=== PATIENT | male | born 1970 | race Caucasian/White ===

== ENCOUNTER 2016-10-07 12:04 | Day surgery (SDC) | payer OTHER ==
[2016-09-20 12:12] VITALS: BMI 30.4
[2016-10-07] MEDS ORDERED: LEVOFLOXACIN 500 MG IVPB 100 ML IVPB ONE (13:33)
[2016-10-07] MEDS ORDERED: LEVOFLOXACIN 500 MG PREMIX BAG IVPB ONE (14:35)
[2016-10-07] MEDS ORDERED: PROPOFOL 20 ML ONE (14:43)
[2016-10-07] MEDS ORDERED: LIDOCAINE HCL/PF 2% SDV 5ML VIAL ONE (14:44)
[2016-10-07] MEDS ORDERED: KETOROLAC TROMETHAMINE 30 MG/1 ML VIAL ONE (15:03)
[2016-10-07] MEDS ORDERED: ACETAMINOPHEN 1000 MG/100 ML VIAL (NON FORMULARY) IVPB ONE (15:16)
[2016-10-07] MEDS ORDERED: oxyCODONE HCL 5 MG TABLET PO PRN (15:16)
[2016-10-07] MEDS ORDERED: ONDANSETRON 4 MG/2 ML VIAL IVPUSH PRN (15:16)
[2016-10-07] MEDS ORDERED: LACTATED RINGERS SOLUTION 1,000 ML IV SCH (15:30)
[2016-10-07 15:38] VITALS: TEMP 97.9
--- NOTE | 2016-10-07 15:42 | OP ---
Operative Note - Note: Operative Date: 10/07/16 Pre-Operative Diagnosis: left renal stone Operation: left eswl Findings: 8mm left mid-pole stone Post-Operative Diagnosis: Same as Pre-op Surgeon: Carlos Ramirez Anesthesia: General Operative Report Dictated: Yes
[2016-10-07] MEDS ORDERED: oxyCODONE HCL 5 MG TABLET ONE (16:00)
[2016-10-07 17:36] VITALS: BP 140/84; PULSE 68
--- NOTE | 2016-10-08 06:32 | OP ---
DATE OF OPERATION: 10/07/2016 PREOPERATIVE DIAGNOSIS: Left renal stone. POSTOPERATIVE DIAGNOSIS: Left renal stone. PROCEDURE: Left extracorporeal shock wave lithotripsy. ATTENDING: Lorena Clifford MD ANESTHESIA: General. OPERATION: The patient was brought in the operating room, placed in supine position on the operating room table. Ultrasonography and fluoroscopy were performed. An 8-mm left mid pole stone was identified. General anesthesia was then administered. Levaquin 500 mg was given intravenously for surgical prophylaxis. At this point, the extracorporeal shock wave lithotripsy was performed, 2500 impulses at 17 joules of power was administered to the stone with excellent fragmentation on real time ultrasonography and fluoroscopy. No complications were noted. The disposition of the patient was to the recovery room. LORENA CLIFFORD M.D. [id number]
== END 2016-10-07 17:40 | disposition home or self-care (01) ==
LOC: JASU-SURG 12:04
PROVIDERS: ATTEND Urology
PROC: 0TF4XZZ Fragmentation in Left Kidney Pelvis, External Approach (ICD-10-PCS; principal; 2016-10-07 13:30)
DX: N20.0 Calculus of kidney (principal)
CPT/HCPCS: 94760

== ENCOUNTER 2017-07-15 10:19 | Emergency (ER) | payer OTHER ==
[2017-07-15 10:23] VITALS: TEMP 98.1; BMI 29.6
[2017-07-15] MEDS ORDERED: KETOROLAC TROMETHAMINE 30 MG/1 ML VIAL IVPUSH ONE (12:37)
[2017-07-15] MEDS ORDERED: FAMOTIDINE IV 20 MG/12 ML VIAL IVPB ONE (12:37)
[2017-07-15] MEDS ORDERED: SODIUM CHLORIDE 1,000 ML IV STA (12:37)
--- NOTE | 2017-07-15 12:37 | PDOC ---
History of Present Illness - General History Source: Patient Exam Limitations: No Limitations - History of Present Illness Initial Comments: 07/15/17 12:40 The patient is a 46 year old male with significant PMH of hyperlipidemia who presents to the emergency department with worsening right flank pain radiating to the right upper quadrant for the past 2 days. The patient describes the right flank pain as shooting and intermittent pain for the past two months but worsened two days ago. The patient states the right flank pain is not improved or worsened by food and water. The patient notes he is experiencing some diaphoresis secondary to his right flank pain. The patient states he has not taken any meds to alleviate the pain. The patient has a history of recent bilateral kidney stones which resolved with lithotripsy. The patient denies fever, chills, nausea, vomit, diarrhea and constipation. Denies dysuria, frequency, urgency and hematuria. The patient denies chest pain, headache and dizziness. Allergies: NKA Past surgical history: None reported Social history: Current smoker (1PPD). No reported alcohol or drug use. PCP: Dr. Garcia <Carmenza Blanco - Last Filed: 07/15/17 12:40> <Karen Zepeda - Last Filed: 07/15/17 15:53> - General Chief Complaint: Pain Stated Complaint: RT SIDE PAIN Time Seen by Provider: 07/15/17 10:36 Past History <Carmenza Blanco - Last Filed: 07/15/17 12:40> - Past Medical History COPD: No Disorders: Yes (KIDNEY STONES) Hypercholesterolemia: Yes (border line) - Suicide/Smoking/Psychosocial Hx Smoking History: Current some day smoker Have you smoked in the past 12 months: Yes Number of Cigarettes Smoked Daily: 20 Information on smoking cessation initiated: Yes 'Breaking Loose' booklet given: 07/15/17 Hx Alcohol Use: No Drug/Substance Use Hx: No Substance Use Type: None <Karen Zepeda - Last Filed: 07/15/17 15:53> - Past Medical History Allergies/Adverse Reactions: Allergies Allergy/AdvReac Type Severity Reaction Status Date / Time No Known Allergies Allergy Verified 07/15/17 10:19 Home Medications: Ambulatory Orders Aspirin [ASA -] 81 mg PO DAILY 09/20/16 Atorvastatin Ca [Lipitor] 20 mg PO DAILY 09/20/16 Cholecalciferol (Vitamin D3) [Vitamin D3] 50,000 unit PO WEEKLY 09/20/16 Review of Systems - Review of Systems Able to Perform ROS?: Yes Comments:: 07/15/17 12:42 GENERAL/CONSTITUTIONAL: No fever or chills. No weakness. HEAD, EYES, EARS, NOSE AND THROAT: No change in vision. No ear pain or discharge. No sore throat. CARDIOVASCULAR: No chest pain or shortness of breath. RESPIRATORY: No cough, wheezing, or hemoptysis. GASTROINTESTINAL: (+) Right flank pain. No nausea, vomiting, diarrhea or constipation. GENITOURINARY: No dysuria, frequency, or change in urination. MUSCULOSKELETAL: No joint or muscle swelling or pain. No neck or back pain. SKIN: No rash NEUROLOGIC: No headache, vertigo, loss of consciousness, or change in strength/ sensation. ENDOCRINE: No increased thirst. No abnormal weight change. HEMATOLOGIC/LYMPHATIC: No anemia, easy bleeding, or history of blood clots. ALLERGIC/IMMUNOLOGIC: No hives or skin allergy. <Carmenza Blanco - Last Filed: 07/15/17 12:40> *Physical Exam - Vital Signs Last Vital Signs Temp Pulse Resp BP Pulse Ox 98.1 F 99 H 18 145/107 100 07/15/17 10:20 07/15/17 10:20 07/15/17 10:20 07/15/17 10:20 07/15/17 10:20 - Physical Exam Comments: 07/15/17 12:43 GENERAL: Awake, alert, and fully oriented, in no acute distress HEAD: No signs of trauma EYES: PERRLA, EOMI, sclera anicteric, conjunctiva clear ENT: Auricles normal inspection, hearing grossly normal, nares patent, oropharynx clear without exudates. Moist mucosa NECK: Normal ROM, supple, no lymphadenopathy, JVD, or masses LUNGS: Breath sounds equal, clear to auscultation bilaterally. No wheezes, and no crackles HEART: Regular rate and rhythm, normal S1 and S2, no murmurs, rubs or gallops ABDOMEN: (+) CVA tenderness. Soft, normoactive bowel sounds. No guarding, no rebound. No masses EXTREMITIES: Normal range of motion, no edema. No clubbing or cyanosis. No cords, erythema, or tenderness NEUROLOGICAL: Cranial nerves II through XII grossly intact. Normal speech, normal gait SKIN: Warm, Dry, normal turgor, no rashes or lesions noted. <Carmenza Blanco - Last Filed: 07/15/17 12:40> - Vital Signs Last Vital Signs Temp Pulse Resp BP Pulse Ox 98.1 F 99 H 18 145/107 100 07/15/17 10:20 07/15/17 10:20 07/15/17 10:20 07/15/17 10:20 07/15/17 10:20 <Karen Zepeda - Last Filed: 07/15/17 15:53> ED Treatment Course - LABORATORY CBC & Chemistry Diagram: 07/15/17 12:15 07/15/17 12:15 <Karen Zepeda - Last Filed: 07/15/17 15:53> *DC/Admit/Observation/Transfer - Attestations Scribe Attestion: 07/15/17 12:43 Documentation prepared by Carmenza Blanco, acting as medical staff manager for Karen Zepeda MD. <Carmenza Blanco - Last Filed: 07/15/17 12:40> - Discharge Dispostion Admit: No <Karen Zepeda - Last Filed: 07/15/17 15:53> Diagnosis at time of Disposition: Flank pain - Discharge Dispostion Disposition: HOME Condition at time of disposition: Stable - Referrals Referrals: Mera Garcia MD [Primary Care Provider] - - Patient Instructions - Post Discharge Activity
[2017-07-15] MEDS ORDERED: KETOROLAC TROMETHAMINE 30 MG/1 ML VIAL ONE (12:49)
[2017-07-15] MEDS ORDERED: FAMOTIDINE 20 MG/50 ML IVPB 20 MG/50 ML MG IVPB ONE (12:50)
[2017-07-15 13:04] LABS: MCH 30.3 pg (25.7-33.7); MCHC 33.3 g/dl (32.0-35.9); MEAN PLT VOLUME 7.7 fl (7.5-11.1); PLATELET COUNT 230 K/MM3 (134-434); RDW 13.5 % (11.9-15.9); WHITE BLOOD COUNT 4.6 K/mm3 (4.0-10.0)
[2017-07-15 13:19] LABS: NEUTROPHILS 56.6 % (42.8-82.8)
[2017-07-15 13:20] LABS: BASOPHIL 0.3 % (0-2.0)
[2017-07-15 13:34] LABS: ALBUMIN 4.1 g/dl (3.4-5.0); ALK PHOS 46 U/L (45-117); ANION GAP 8 (8-16); BILIRUBIN,TOTAL 0.5 mg/dL (0.2-1.0); CALCIUM 9.4 mg/dL (8.5-10.1); CO2 27 mmol/L (21-32); CREATININE 1.3 mg/dL (0.7-1.3); GLUCOSE,RANDOM 90 mg/dL (74-106); SGOT/AST 19 U/L (15-37); SGPT/ALT 53 U/L (12-78); TOT PROT 7.3 g/dl (6.4-8.2)
[2017-07-15 16:29] LABS: URINE APPEARANCE SLCLOUDY; URINE BLOOD NEGATIVE (NEGATIVE); URINE COLOR AMBER; URINE GLUCOSE (UA) NEGATIVE (NEGATIVE); URINE KETONE TRACE (NEGATIVE); URINE NITRITE NEGATIVE (NEGATIVE); URINE PROTEIN NEGATIVE (NEGATIVE)
[2017-07-15 17:39] VITALS: BP 148/89; PULSE 72
[2017-07-15 18:40] LABS: URINE LEUK ESTERASE Negative (NEGATIVE)
== END 2017-07-15 17:15 | disposition home or self-care (01) ==
LOC: JER 10:19
PROC: 3E033GC Introduction of Other Therapeutic Substance into Peripheral Vein, Percutaneous Approach (ICD-10-PCS; principal; 2017-07-15)
PROC: 3E0337Z Introduction of Electrolytic and Water Balance Substance into Peripheral Vein, Percutaneous Approach (ICD-10-PCS; 2017-07-15)
DX: R10.31 Right lower quadrant pain (principal); E78.5 Hyperlipidemia, unspecified; F17.210 Nicotine dependence, cigarettes, uncomplicated
CPT/HCPCS: 36415; 74176; 76705-TC; 80053; 81003; 83690; 85025; 96361; 96365; 96375; 99281-25

== ENCOUNTER 2019-08-31 07:40 | Emergency (ER) | payer OTHER ==
[2019-08-31 07:52] VITALS: BP 128/91; PULSE 92; TEMP 98; BMI 33.4
[2019-08-31] MEDS ORDERED: KETOROLAC TROMETHAMINE 30 MG/1 ML VIAL IM ONE (08:32)
[2019-08-31] MEDS ORDERED: KETOROLAC TROMETHAMINE 30 MG/1 ML VIAL ONE (08:35)
--- NOTE | 2019-08-31 09:10 | PDOC ---
History of Present Illness - General Chief Complaint: Back Pain Stated Complaint: LOWER BACK PAIN Time Seen by Provider: 08/31/19 08:14 History Source: Patient Exam Limitations: No Limitations - History of Present Illness Initial Comments: 08/31/19 09:04 49-year-old male with history of hypertension, hyperlipidemia, SLE, sleep apnea , asthma, anxiety presents complaining of atraumatic low back pain radiating to left lower extremity x2 days with occasional back spasms. Reports pain has slightly improved without intervention. Denies fever, chills, weakness, urinary or bowel incontinence. ROS: GENERAL/CONSTITUTIONAL: No fever, chills, weakness, dizziness HEAD, EYES, EARS, NOSE AND THROAT: No changes in vision, No ear pain or discharge, No sore throat CARDIOVASCULAR: No chest pain RESPIRATORY: No shortness of breath or cough GASTROINTESTINAL: No pain, nausea, vomiting, diarrhea or constipation GENITOURINARY: No dysuria MUSCULOSKELETAL: + back pain SKIN: No rash NEUROLOGIC: No headache, vertigo, loss of consciousness, or loss of sensation PE: GENERAL: well-appearing, NAD HEAD: NCAT EYES: Pupils equal, round and reactive to light, sclera anicteric, conjunctiva clear ENT: pharynx: no erythema, no exudate, uvula midline NECK: supple CHEST: nontender RESP: clear, no w/r/r CARDIO: rrr, no m/g/r ABD: +BS, soft, nontender, non distended BACK: L4-L5 minimal paraspinal tenderness to palpation, no midline spinal ttp, no CVAT EXTREMITIES: Normal range of motion, no edema NEUROLOGICAL: Ambulating with cane and slight limp SKIN: Warm, Dry 08/31/19 09:10 Past History - Past Medical History Allergies/Adverse Reactions: Allergies Allergy/AdvReac Type Severity Reaction Status Date / Time No Known Allergies Allergy Verified 07/15/17 10:19 Home Medications: Ambulatory Orders Aspirin [ASA -] 81 mg PO DAILY 09/20/16 Atorvastatin Ca [Lipitor] 20 mg PO DAILY 09/20/16 Cholecalciferol (Vitamin D3) [Vitamin D3] 50,000 unit PO WEEKLY 09/20/16 Albuterol Sulfate Inhaler - [Ventolin Hfa Inhaler -] 2 inh PO Q6H PRN 08/31/19 Amlodipine Besylate [Norvasc -] 10 mg PO DAILY 08/31/19 Famotidine [Pepcid] 40 mg PO DAILY 08/31/19 Fenofibrate 16 mg PO HS 08/31/19 Ibuprofen 600 mg PO Q6H #20 tablet 08/31/19 Tiotropium [place] [Spiriva] 1 inh IH PRN PRN 08/31/19 predniSONE [Deltasone -] 10 mg PO ASDIR 08/31/19 traZODone HCL [Trazodone HCl] 50 mg PO HS 08/31/19 COPD: No Disorders: Yes (KIDNEY STONES) Hypercholesterolemia: Yes (border line) - Immunization History Immunization Up to Date: No - Psycho Social/Smoking Cessation Hx Smoking History: Current every day smoker Have you smoked in the past 12 months: Yes Number of Cigarettes Smoked Daily: 20 Information on smoking cessation initiated: No 'Breaking Loose' booklet given: 07/15/17 Hx Alcohol Use: No Drug/Substance Use Hx: No Substance Use Type: None *Physical Exam - Vital Signs Last Vital Signs Temp Pulse Resp BP Pulse Ox 98.0 F 92 H 18 128/91 96 08/31/19 07:46 08/31/19 07:46 08/31/19 07:46 08/31/19 07:46 08/31/19 07:46 ED Treatment Course - Medications Given in the ED: ED Medications Discontinued Medications Generic Name Dose Route Start Last Admin Trade Name Freq PRN Reason Stop Dose Admin Ketorolac Tromethamine 30 mg 08/31/19 08:32 08/31/19 08:39 Toradol Injection - IM 08/31/19 08:33 30 mg ONCE ONE Administration Medical Decision Making - Medical Decision Making 08/31/19 09:08 49-year-old male presents complaining of atraumatic low back pain radiating to left lower extremity x 2 days with muscle spasms. States pain has slightly improved without intervention. Pain improved after IM Toradol Patient is ambulatory Understands he needs to follow-up with PMD Return precautions given Discharge - Discharge Information Problems reviewed: Yes Clinical Impression/Diagnosis: Back pain Qualifiers: Back pain location: low back pain Chronicity: acute Sciatica presence: with sciatica Sciatica laterality: sciatica of left side Condition: Stable Disposition: HOME - Admission No - Additional Discharge Information Prescriptions: Ibuprofen 600 mg PO Q6H #20 tablet - Follow up/Referral Referrals: Mera Garcia MD [Primary Care Provider] - - Patient Discharge Instructions Additional Instructions: Take ibuprofen 600 mg every 4-6 hours as needed for pain Follow-up with your primary care doctor within 1 to 2 weeks Return to ED if fever, chills, urinary or bowel incontinence, weakness or any worsening symptoms - Post Discharge Activity
== END 2019-08-31 09:21 | disposition home or self-care (01) ==
LOC: JER 07:40
PROC: 3E0233Z Introduction of Anti-inflammatory into Muscle, Percutaneous Approach (ICD-10-PCS; principal; 2019-08-31)
DX: M54.42 Lumbago with sciatica, left side (principal); I10 Essential (primary) hypertension; E78.5 Hyperlipidemia, unspecified; M32.9 Systemic lupus erythematosus, unspecified; G47.39 Other sleep apnea; J45.909 Unspecified asthma, uncomplicated; F41.9 Anxiety disorder, unspecified
CPT/HCPCS: 96372; 99281-25

== ENCOUNTER 2020-03-06 16:12 | Day surgery (SDC) | payer OTHER ==
[2020-03-03 16:46] VITALS: BMI 30.4
[2020-03-06] MEDS ORDERED: ACETAMINOPHEN 325 MG TABLET (FP) PO PRN (16:37)
[2020-03-06] MEDS ORDERED: oxyCODONE HCL 5 MG TABLET PO PRN (17:18)
[2020-03-06] MEDS ORDERED: PROMETHAZINE HCL 25 MG/1 ML VIAL IVPUSH PRN (17:18)
[2020-03-06] MEDS ORDERED: PROPOFOL 20 ML ONE (18:16)
[2020-03-06] MEDS ORDERED: MIDAZOLAM HCL 2 MG/2 ML SINGLE DOSE VIAL ONE (18:16)
--- NOTE | 2020-03-06 18:25 | OP ---
Operative Note - Note: Operative Date: 03/06/20 Pre-Operative Diagnosis: Right renal stone Operation: Righr ESWL Findings: 6 mm mid pole Right renal stone Post-Operative Diagnosis: Same as Pre-op Surgeon: Carlos Ramirze Anesthesia: Regional Estimated Blood Loss (mls): 0 Operative Report Dictated: Yes
[2020-03-06] MEDS ORDERED: LIDOCAINE HCL/PF 2% SDV 5ML VIAL ONE (18:26)
[2020-03-06] MEDS ORDERED: KETOROLAC TROMETHAMINE 30 MG/1 ML VIAL ONE (18:28)
[2020-03-06] MEDS: LACTATED RINGERS SOLUTION 1,000 ML IV SCH (21:00)
[2020-03-07] MEDS: LACTATED RINGERS SOLUTION 1,000 ML IV SCH (05:33)
[2020-03-07 05:52] VITALS: BP 122/96; PULSE 71; TEMP 98.4
--- NOTE | 2020-03-07 19:02 | OP ---
DATE OF OPERATION: 03/06/2020 PREOPERATIVE DIAGNOSIS: Right renal stone. POSTOPERATIVE DIAGNOSIS: Right renal stone. PROCEDURE: Right extracorporeal shockwave lithotripsy. ATTENDING: Lorena Ramirez M.D. ANESTHESIA: Fractional. DESCRIPTION OF PROCEDURE: Patient was brought in the operating room, placed in a supine position on the operating room table. Ultrasonography and fluoroscopy were performed. A 6-mm right mid pole stone was identified. At that point, anesthesia and preoperative antibiotics were administered. Extracorporeal shockwave lithotripsy was then started. 2500 impulses at 17 joules of power were administered to the stone with excellent fragmentation of the stone noted under real-time ultrasonography and fluoroscopy. No complications were noted. DISPOSITION: To recovery room. LORENA CLIFFORD M.D. [id number]
== END 2020-03-07 07:27 | disposition home or self-care (01) ==
LOC: JASUSAT 16:12 → JASU-SURG 16:12 → J6S 20:10 → JASUSAT 03-07 07:27
PROVIDERS: ATTEND Urology
PROC: 0TF3XZZ Fragmentation in Right Kidney Pelvis, External Approach (ICD-10-PCS; principal; 2020-03-06 18:15)
DX: N20.0 Calculus of kidney (principal)
CPT/HCPCS: 94760

== ENCOUNTER 2020-12-01 10:12 | Emergency (ER) | payer OTHER ==
[2020-12-01 10:32] VITALS: BP 126/85; PULSE 98; TEMP 97.8; BMI 31.9
[2020-12-01] MEDS ORDERED: KETOROLAC TROMETHAMINE 30 MG/1 ML VIAL IM ONE (11:02)
[2020-12-01] MEDS ORDERED: KETOROLAC TROMETHAMINE 30 MG/1 ML VIAL ONE (11:11)
[2020-12-01 11:31] LABS: BASO % 0.8 % (0-2.0); EOS % 1.6 % (0-4.5); HEMATOCRIT 46.9 % (35.4-49); HEMOGLOBIN 16.3 GM/dL (11.7-16.9); LYMPH % 22.4 % (8-40); MCH 31.5 pg (25.7-33.7); MCHC 34.8 g/dl (32.0-35.9); MEAN CELL VOLUME 90.6 fl (80-96); MEAN PLT VOLUME 7.5 fl (7.5-11.1); MONO % 9.5 % (3.8-10.2); NEUT % 65.7 % (42.8-82.8); PLATELET COUNT 331 K/MM3 (134-434); RBC 5.18 M/mm3 (4.00-5.60); RDW 13.8 % (11.9-15.9); WHITE BLOOD COUNT 4.5 K/mm3 (4.0-10.0)
== END 2020-12-01 13:44 | disposition home or self-care (01) ==
LOC: JER 10:12
PROC: 3E0233Z Introduction of Anti-inflammatory into Muscle, Percutaneous Approach (ICD-10-PCS; principal; 2020-12-01)
DX: L03.116 Cellulitis of left lower limb (principal)
CPT/HCPCS: 36415; 73140-TC-LT-FY; 85025; 93971-TC; 99285-25

== ENCOUNTER 2021-03-05 04:36 | Day surgery (SDC) | payer OTHER ==
[2021-03-02 14:41] VITALS: BMI 31.9
[2021-03-05] MEDS ORDERED: MIDAZOLAM HCL 2 MG/2 ML SINGLE DOSE VIAL ONE ×2 (11:17)
[2021-03-05 14:11] VITALS: BP 140/93; PULSE 81; TEMP 97.3
== END 2021-03-05 13:50 | disposition home or self-care (01) ==
LOC: JASU-SURG 04:36
PROVIDERS: ATTEND Urology
PROC: 0TF4XZZ Fragmentation in Left Kidney Pelvis, External Approach (ICD-10-PCS; principal; 2021-03-05 12:00)
DX: N20.0 Calculus of kidney (principal)

== ENCOUNTER 2021-06-28 06:33 | Emergency (ER) | payer OTHER ==
[2021-06-28 07:01] VITALS: BP 157/88; PULSE 88; TEMP 97.9; BMI 33.4
[2021-06-28 09:12] LABS: BASO % 0.8 % (0-2.0); EOS % 1.4 % (0-4.5); HEMATOCRIT 47.7 % (35.4-49); HEMOGLOBIN 16.5 GM/dL (11.7-16.9); LYMPH % 29.8 % (8-40); MCHC 34.5 g/dl (32.0-35.9); MEAN CELL VOLUME 89.7 fl (80-96); MEAN PLT VOLUME 8.1 fl (7.5-11.1); MONO % 9.8 % (3.8-10.2); NEUT % 58.2 % (42.8-82.8); PLATELET COUNT 267 10^3/uL (134-434); RBC 5.32 M/mm3 (4.00-5.60); RDW 13.2 % (11.9-15.9)
[2021-06-28 09:31] LABS: CHLORIDE 101 mmol/L (98-107); SODIUM 138 mmol/L (136-145)
[2021-06-28 09:33] LABS: ALBUMIN 4.6 g/dl (3.4-5.0); ANION GAP 9 MMOL/L (8-16); BLOOD UREA NITROGEN 12.6 mg/dL (7-18); CALCIUM 9.5 mg/dL (8.5-10.1); CO2 28 mmol/L (21-32)
[2021-06-28 09:34] LABS: GLUCOSE,RANDOM 100 mg/dL (74-106)
[2021-06-28 09:36] LABS: SGOT/AST 37 U/L (15-37); SGPT/ALT 61 U/L (13-61)
[2021-06-28 09:38] LABS: BILIRUBIN,TOTAL 0.8 mg/dL (0.2-1); TOT PROT 8.2 g/dl (6.4-8.2)
[2021-06-28 09:39] LABS: ALK PHOS 70 U/L (45-117)
[2021-06-28 09:41] LABS: N-TERMINAL BNP 9.8 pg/ml (5-125)
== END 2021-06-28 10:16 | disposition home or self-care (01) ==
LOC: JER 06:33
DX: K92.1 Melena (principal)
CPT/HCPCS: 36415; 71046-TC-FY; 80053; 82272; 83880; 84484; 85025; 93005; 93010; 99285-25

== ENCOUNTER 2022-08-19 11:43 | Emergency (ER) | payer OTHER ==
[2022-08-19 12:20] VITALS: BP 148/83; PULSE 97; RESP 18; TEMP 98.8; BMI 31.1
[2022-08-19] MEDS ORDERED: METHOCARBAMOL 500 MG TABLET PO ONE (13:28)
[2022-08-19] MEDS ORDERED: KETOROLAC TROMETHAMINE 30 MG/1 ML VIAL IM ONE (13:28)
[2022-08-19] MEDS ORDERED: METHOCARBAMOL 500 MG TABLET ONE (13:33)
[2022-08-19] MEDS ORDERED: KETOROLAC TROMETHAMINE 30 MG/1 ML VIAL ONE (13:33)
== END 2022-08-19 13:48 | disposition home or self-care (01) ==
LOC: JERFT 11:43 → JER 11:43 → JERFT 13:48
PROC: 3E023GC Introduction of Other Therapeutic Substance into Muscle, Percutaneous Approach (ICD-10-PCS; principal; 2022-08-19)
DX: R07.81 Pleurodynia (principal)
CPT/HCPCS: 71046-TC-FY; 71101-TC-LT-FY; 99284-25